=== PATIENT | female | born 1965 | race Caucasian/White ===

== ENCOUNTER → 2017-07-21 | Outpatient (CLI) | payer BC ==
--- NOTE | 2017-07-21 16:24 | MR ---
MRI CERVICAL SPINE: CLINICAL HISTORY: Neck pain per order. Neck pain into shoulder causing tingling in hands for 2 years or so with pain or weakness in right arm also per patient. TECHNIQUE: Multiplanar, multisequence imaging of the cervical spine is performed without IV contrast. COMPARISON: None. FINDINGS: Sagittal images of the cervical spine show the craniocervical junction to appear within nor mal limits. The cervical and upper thoracic spinal cord is normal in course caliber and signal. Ther e is grade 1 retrolisthesis of C5 on C6 and C6 on C7. The vertebral body heights are normal. There is moderate disc space narrowing and spurring C5-C6 and C6-C7 levels where there is heterogeneous inc reased T1 and T2 signal consistent with Modic type II degenerative change C5-C6 level and diminished T1 and increased T2 signal consistent with Modic type I degenerative change C6-C7 level. Posterior di sc herniations are seen effacing anterior thecal sac at these levels. Axial images show the C2-C3, C3-C4, C4-C5 levels to appear within normal limits. Axial images at C5-C6 level shows broad-based posterior disc protrusion with more prominent right for aminal component effacing anterior thecal sac and causing advanced right-sided neural foraminal narro wing appreciated best on axial image 22 and sagittal image 10. Left-sided neural foramina shows mild to moderate narrowing. Axial images at C6-C7 level show broad-based posterior disc protrusion with posterior marginal spurri ng effacing anterior thecal sac and causing moderate to advanced bilateral neural foraminal narrowing . Axial images at C7-T1 level are felt within normal limits. IMPRESSION: Spondylolisthesis and degenerative changes C5-C6 and C6-C7 level. Note is made of advance d right-sided neural foraminal narrowing C5-C6 level which may correlate with patient's symptoms. Fur ther details are noted as discussed above.
== END | disposition home or self-care (01) ==
LOC: RADMRIMAIN 15:01
PROVIDERS: ATTEND Orthopaedic Surgery
DX: M99.71 Connective tissue and disc stenosis of intervertebral foramina of cervical region (principal); M43.12 Spondylolisthesis, cervical region; M47.812 Spondylosis without myelopathy or radiculopathy, cervical region
CPT/HCPCS: 72141

== ENCOUNTER → 2023-05-12 | Outpatient (CLI) | payer BC ==
--- NOTE | 2023-05-12 10:53 | XR ---
EXAMINATION TYPE: XR lumbosacral spine min 4V DATE OF EXAM: 05/12/2023 CLINICAL HISTORY: pain COMPARISON: NONE TECHNIQUE: Frontal, lateral, and oblique images of the lumbar spine are obtained. FINDINGS: There are 5 lumbar type vertebral bodies identified. The lumbar spine shows satisfactory alignment without evidence of acute fracture or dislocation. Vertebral body heights are within normal limits. Moderate multilevel degenerative disc disease L3-4 through L5-S1. Grade 1 anterolisthesis L4 and L5 measuring 4.3 mm. Severe facet joint arthropathy. The overlying soft tissue appears unremar kable. IMPRESSION: No acute fracture or dislocation is seen in the lumbar spine.
== END | disposition home or self-care (01) ==
LOC: RADXRYALE 10:20
PROVIDERS: ATTEND Physician Assistant
DX: M54.51 Vertebrogenic low back pain (principal)
CPT/HCPCS: 72110